=== PATIENT | female | born 2000 | race Two or more races ===

== ENCOUNTER 2024-10-31 12:58 | Emergency (ER) | payer BC, OTHER ==
[~2024-10-31] VITALS: Ht 172.7 cm; Wt 62.6 kg
[2024-10-31 13:22] VITALS: BP 138/72; TEMP 98.3
[2024-10-31 13:51] VITALS: O2SAT 100
== END 2024-10-31 13:51 | disposition home or self-care (01) ==
LOC: ER 13:07
DX: S61.012A Laceration without foreign body of left thumb without damage to nail, initial encounter (principal); W26.0XXA Contact with knife, initial encounter; Y93.89 Activity, other specified; Y92.090 Kitchen in other non-institutional residence as the place of occurrence of the external cause; Y99.8 Other external cause status